=== PATIENT | female | born 2000 | race Two or more races ===

== ENCOUNTER 2024-04-13 18:00 | Emergency (ER) | payer MEDICAID, SELFPAY ==
[2024-04-13 18:01] VITALS: BMI 24.0
[2024-04-13 18:34] VITALS: BP 131/84; PULSE 81; RESP 18; TEMP 37.2; O2SAT 100
--- NOTE | 2024-04-13 18:36 | PD.EDRME ---
Rapid Medical Screening Exam RME Arrival date/time: 04/13/24 18:00 Chief Complaint: GI Bleed Time Seen by Provider: 04/13/24 18:14 Vital signs: Vital Signs Temperature 98.9 F 04/13/24 18:34 Pulse Rate 81 04/13/24 18:34 Respiratory Rate 18 04/13/24 18:34 Blood Pressure 131/84 H 04/13/24 18:34 Pulse Oximetry (%) 100 04/13/24 18:34 Oxygen Delivery Method Room Air 04/13/24 18:34 E Narrative: Single episode of bright red blood in stool today.
--- NOTE | 2024-04-13 18:37 | XR_ITS ---
Examination: Abdomen AP single view Technique: AP portable supine abdomen, single view Exam date and time: April 13, 2024 at 1841 hours INDICATIONS: Blood in the stool with constipation today FINDINGS: Nonobstructive bowel gas pattern. Moderate stool in the right colon No free air Osseous structures intact IMPRESSION: Nonobstructive bowel gas pattern
[2024-04-13 19:36] LABS: Collection Type, Urine Clean Catch
[2024-04-13 19:54] LABS: Bilirubin,Urine Negative (Negative); Blood,Urine 1+ (Negative); Clarity,Urine Turbid (Clear/Hazy); Glucose, Urine Negative (Negative); HCG Qualitative,Urine Negative; Ketones,Urine Trace (Negative); Leukocyte Esterase,Urine Positive (Negative); Nitrite,Urine Negative (Negative); Protein,Urine Trace (Neg - Trace); RBC,Urine 3 /hpf (0-3); Squamous Epithelial Cell,Urine 17 /hpf (0-5); Urobilinogen,Urine Negative mg/dL (0.0-1.0); WBC,Urine 10 /hpf (0-5)
[2024-04-13 19:55] LABS: Color,Urine Lt Orange (Lt Yel-Yel)
[2024-04-13 20:56] LABS: Alanine Aminotransferase 17 U/L (10-49); Albumin, Serum 4.9 gm/dL (3.5-5.0); Albumin/Globulin Ratio 1.6 (1.2-2.2); Alkaline Phosphatase 84 U/L (46-116); Anion Gap 8 (7-16); Aspartate Amino Transferase 18 U/L (0-34); BUN/Creatinine Ratio 12 Ratio (12-20); Bilirubin,Total 0.3 mg/dL (0.3-1.2); Blood Urea Nitrogen 11 mg/dL (9-23); Calcium 9.8 mg/dL (8.3-10.6); Calcium (Corrected) 9.8 mg/dL (8.5-10.1); Carbon Dioxide 27.4 mMol/L (20.0-31.0); Chloride 105 mMol/L (98-107); Creatinine (Component) 0.9 mg/dL (0.6-1.3); Estimated Creatinine Clearance 79.4 mL/min (>60); Glucose 92 mg/dL (74-106); Osmolality,Calculated 278 (275-295); Potassium 3.8 mMol/L (3.4-5.1); Sodium 140 mMol/L (136-145); Total Protein 7.9 gm/dL (5.7-8.2); eGFR > 60 See Note
[2024-04-13 21:00] LABS: Basophils # (Auto) 0.1 Thou/mm3 (0.0-0.2); Basophils % (Auto) 1 % (0-2.5); Eosinophils # (Auto) 0.1 Thou/mm3 (0.0-0.5); Eosinophils % (Auto) 1 % (0-10); Hematocrit 40.8 % (36.0-46.0); Immature Granulocytes % (Auto) 0 % (0-0); Immature Granulocytes Auto 0.02 Thou/mm3 (0.00-0.00); Lymphocytes # (Auto) 2.7 Thou/mm3 (1.0-4.8); Lymphocytes % (Auto) 34 % (10-50); Mean Corpuscular HGB Conc 34.3 g/dl (31.0-37.0); Mean Corpuscular Hemoglobin 30.8 pg (25.0-35.0); Mean Corpuscular Volume 90 fL (80-100); Monocytes # (Auto) 0.6 Thou/mm3 (0.0-0.8); Monocytes % (Auto) 8 % (0-12); Neutrophils # (Auto) 4.5 Thou/mm3 (1.8-7.7); Neutrophils % (Auto) 57 % (37-80); Nucleated Red Blood Cell % 0 /100 WBC (0); Platelet Count 297 Thou/mm3 (140-440); RDW Standard Deviation 38.7 fL (36.4-46.3); Red Blood Count 4.55 Miln/mm3 (4.00-5.20); White Blood Count 7.9 Thou/mm3 (3.6-11.0)
--- NOTE | 2024-04-13 22:06 | PD.EDGIBLD ---
ED GI Bleed E/HPI General Chief complaint: GI Bleed Stated complaint: BLOOD IN STOOL TODAY Time Seen by Provider: 04/13/24 18:14 Arrival date/time: 04/13/24 18:00 RME / HPI RME / HPI Narrative: 24-year-old female patient came in for evaluation regarding blood red blood in the stool earlier today. Severity mild. Patient also complaining of lower abdominal discomfort. Denies any vomiting blood. Denies any rectal pain. Denies any other complaints. No medications taken prior to arrival. Related Data Previous Rx's ?Medication ?Instructions ?Recorded hydrocodone 5 mg-acetaminophen 325 1 tab PO Q4HR PRN Pain #20 tabs 09/30/ mg tablet hydrocortisone acetate 25 mg 25 mg MS BID #24 ea 04/13/24 rectal suppository (Anucort-HC) Allergies Allergy/AdvReac Type Severity Reaction Status Date / Time No Known Allergies Allergy Verified 04/13/24 18:02 Review of Systems Review of Systems Narrative Review of Systems: Review of system reviewed and within normal limits except mentioned in HPI ED Exam Narrative Physical exam: VITAL SIGNS: Reviewed. GENERAL APPEARANCE: Alert and interactive, follows commands, no acute distress, HEAD AND FACE: Non-traumatic. ENT: PERRL, pink conjunctivitis, eyelid no trauma, Mucous membrane moist. NECK: Supple, nontender, no nuchal rigidity. CHEST: No tenderness, no crepitus, no paradoxical movement, no retractions. LUNGS: Clear, well ventilated, symmetric, no rales, no wheezing, no ronchi, no stridor, good breath sounds bilaterally. HEART: Regular rate, regular rhythm, no murmur, no gallops. ABDOMEN: Soft, positive bowel sounds, nondistended, no guarding, nontender, no rebound, no masses, RECTAL: Deferred. GENITAL: Deferred. NEUROLOGICAL: Gross motor function intact sensory function intact, Appropriate for age. MUSCULOSKELETAL: low back nontender, full range of motion. EXTREMITIES: Nontender, full range of motion. SKIN: Color pink, dry, no rash, no lacerations, no abrasions, no contusions. LYMPHATICS: Deferred. Course Quality Measures none Orders Category Date Time Status KUB [XR abdomen 1V] Stat Exams 04/13/24 18:37 Completed CBC Stat Lab 04/13/24 20:15 Completed CMP [Comprehensive Metabolic Panel] Stat Lab 04/13/24 20:15 Completed HCG Qualitative,Urine Stat Lab 04/13/24 19:29 Completed UA [Urinalysis] Stat Lab 04/13/24 19:29 Completed Vital Signs Vital signs: Vital Signs Temperature 98.9 F 04/13/24 18:34 Pulse Rate 81 04/13/24 18:34 Respiratory Rate 18 04/13/24 18:34 Blood Pressure 131/84 H 04/13/24 18:34 Pulse Oximetry (%) 100 04/13/24 18:34 Oxygen Delivery Method Room Air 04/13/24 18:34 GI Bleed MDM Narrative MDM Narrative:: 24-year-old female patient came in for evaluation regarding blood red blood in the stool earlier today. Severity mild. Patient also complaining of lower abdominal discomfort. Denies any vomiting blood. Denies any rectal pain. Denies any other complaints. No medications taken prior to arrival. Patient's workup today all came back normal and there is no sign of anemia. Urinalysis no UTI dirty collection. X-ray of the abdomen came back unremarkable. Patient was advised to follow-up with PCP and asked for referral to GI specialist, Dr. Cantrell, for outpatient colonoscopy. Patient agrees with the plan. Patient data External records reviewed:: None Clinical information provided by:: patient Social determinants that could affect healthcare access:: none Patient has the following chronic illnesses:: None How is presenting disease/condition affected by chronic disease/condition?: no chronic disease Evaluation data The following diagnostics were reviewed and interpreted by me:: lab results and radiology exam(s) Lab and/or radiology exams considered but not ordered:: None Interpretation Summary: Patient's workup today all came back normal and there is no sign of anemia. Urinalysis no UTI dirty collection. X-ray of the abdomen came back unremarkable. Medications / Prescriptions Medications or Prescriptions considered but not ordered:: None Medication administrations:: None Consultations Consultation(s) initiated? (list below): No Diagnosis GI bleed differential diagnosis: hemorrhoids and Lower gastrointestinal hemorrhage Most likely diagnosis given after review of the tests above:: Bright red blood per rectum Admission Indicated Admission indicated?: not indicated Explain why admission is indicated or not indicated:: Bright red blood per rectum Admission Request Was there a request for admission?: No Disposition Plan Disposition Plan: Discharge Discharge Attestation Discharge Attestation: The patient was given an opportunity to ask questions and understood the discharge instructions. Discharge instructions specifically effects, indications for sooner follow up or return to the emergency department, and the expected course of current diagnosis. Patient condition: Stable Discharge Plan Plan Patient Disposition: HOME (Self Care) Disposition Comment: Stable Prescriptions/Referrals Prescriptions/Med Rec: New hydrocortisone acetate [Anucort-HC] 25 mg suppository 25 mg MS BID Qty: 24 0RF No Action hydrocodone-acetaminophen 5-325 mg Tablet 1 tab PO Q4HR MDD Three PRN (Reason: Pain) Qty: 20 0RF Referrals: Tacho Rivers MD [Primary Care Provider] - In 1 week Problem List Clinical Impression: BRBPR (bright red blood per rectum) Patient/Caregiver Discharge Instructions Discharge Activity: activity as tolerated Education Materials: Understanding Rectal Bleeding Additional Instructions: Thank you for the opportunity for serving you today. You are stable for discharged . You are advised to: Follow-up with your PCP in 1 to 2 days and as per referral to GI specialist, Dr. Cantrell Increase fiber in the diet Return to ED for worsening of symptoms Increase oral fluids Take medication as prescribed Print Language: Hebrew Stand Alone Forms: Sarah Award Info., Patient Portal Info Letter PA/SURI Supervising Physician SCOTT/SURI Supervising Physician: MD Dahiana
[2024-04-13 22:10] VITALS: RESP 18
== END 2024-04-13 22:11 | disposition home or self-care (01) ==
PROVIDERS: Physician Assistant; Emergency Provider Emergency Medicine; PCP Family Medicine
DX: K62.5 Hemorrhage of anus and rectum (principal)
CPT/HCPCS: 36415; 74018; 80053; 81001; 81025; 85025; 99283

== ENCOUNTER 2024-11-23 15:31 | Emergency (ER) | payer MEDICAID, SELFPAY ==
[2024-11-23 15:31] VITALS: BMI 26.4
[2024-11-23 16:13] VITALS: BP 128/80; PULSE 81; RESP 20; TEMP 36.8; O2SAT 98
--- NOTE | 2024-11-23 16:31 | XR_ITS ---
Examination: Pelvic ultrasound, transabdominal, complete Technique: Transabdominal ultrasound of the pelvis performed using grayscale imaging Date and time of exam: November 23, 2024, 1712 hours INDICATIONS: Onset right lower abdominal pelvic pain beginning 2 days ago. FINDINGS: Uterus 7.9 cm endometrial stripe 0.8 cm No uterine mass or intrauterine gestation. Right ovary 3.7 cm arterial flow. Left ovary 4.3 cm arterial flow 15 mm follicular cyst IMPRESSION: No uterine mass or intrauterine gestation
--- NOTE | 2024-11-23 16:31 | XR_ITS ---
Examination: CT abdomen with intravenous contrast CT pelvis with intravenous contrast 2-D coronal reconstructions 2-D sagittal reconstructions Date and time of exam:November 23, 2024 2147 hours, comparison September 28, 2020 INDICATIONS: Onset flank pain today. CTDI: vol (mGy) 6.42 DLP: (mGycm) 344 Technique: Multiple axial sections of the abdomen and pelvis have been obtained. 64 slice high-resolution scanner used. 3 mm axial sections have been obtained, post intravenous injection 60 cc Isovue 370 2-D sagittal, coronal reconstructions obtained. Low dose protocols were performed. One or more of the following dose reduction techniques were used; automated exposure control, adjustment of the mA and/or KV according to patient size, use of iterative reconstruction technique. Findings: No focal liver or splenic lesions No gallstones No pancreatic or adrenal mass No renal or ureteral calculi, no hydronephrosis Aorta normal size. Absent appendix No bowel obstruction No diverticulitis Retroverted uterus. No adnexal mass Mild thickening of the urinary bladder wall Osseous structures are intact IMPRESSION: No renal or ureteral calculi, no hydronephrosis No bowel obstruction or diverticulitis Mild cystitis pattern
--- NOTE | 2024-11-23 16:32 | EDRME_ITS ---
Rapid Medical Screening Exam RME Arrival date/time: 11/23/24 15:31 Chief Complaint: Abdominal Pain Vital signs: Vital Signs Temperature 98.2 F 11/23/24 16:13 Pulse Rate 81 11/23/24 16:13 Respiratory Rate 20 11/23/24 16:13 Blood Pressure 128/80 11/23/24 16:13 Pulse Oximetry (%) 98 11/23/24 16:13 Oxygen Delivery Method Room Air 11/23/24 16:13 Vital signs reviewed by provider: Yes RME Narrative: Patient is a 35-year-old female with medical history notable for remote appendectomy that seen emerged from concerns for right lower quadrant abdominal pain. Denies fevers chills nausea vomiting chest pain epigastric pain melena bloody stools. Does endorse dysuria. Pain is in the right lower quadrant and in the pelvis, radiates to the back. Does endorse some dysuria. No abnormal vaginal discharge, no history of sexually transmitted infections. Patient is currently taking 800 mg of ibuprofen as well as baclofen for pain for a work-re lated injury. Patient does not have any allergies to medications. No drugs alcohol no smoking.
[2024-11-23 17:11] LABS: Collection Type, Urine Clean Catch
[2024-11-23 17:23] LABS: Bacteria,Urine Rare; Bilirubin,Urine Negative (Negative); Blood,Urine Trace (Negative); Color,Urine Lt-Yellow (Lt Yel-Yel); Culture Indicated,Urine Not Indicated; Glucose, Urine Negative (Negative); Ketones,Urine Negative (Negative); Leukocyte Esterase,Urine Positive (Negative); Nitrite,Urine Negative (Negative); PH,Urine 7.0 (5.0-7.0); Protein,Urine Negative (Neg - Trace); RBC,Urine 1 /hpf (0-3); Specific Gravity,Urine 1.007 (1.001-1.035); Squamous Epithelial Cell,Urine 7 /hpf (0-5); Urobilinogen,Urine Negative mg/dL (0.0-1.0); WBC,Urine 6 /hpf (0-5)
[2024-11-23] MEDS: HYDROcodone/APAP 5/325 TABLET 1 TAB PO (17:45)
[2024-11-23 17:50] LABS: Clarity,Urine Hazy (Clear/Hazy)
[2024-11-23 18:04] LABS: Basophils # (Auto) 0.1 Thou/mm3 (0.0-0.2); Basophils % (Auto) 1 % (0-2.5); Eosinophils # (Auto) 0.0 Thou/mm3 (0.0-0.5); Eosinophils % (Auto) 1 % (0-10); Hematocrit 42.0 % (36.0-46.0); Hemoglobin 14.9 g/dL (12.0-16.0); Immature Granulocytes Auto 0.02 Thou/mm3 (0.00-0.00); Lymphocytes # (Auto) 2.4 Thou/mm3 (1.0-4.8); Lymphocytes % (Auto) 29 % (10-50); Mean Corpuscular HGB Conc 35.5 g/dl (31.0-37.0); Mean Corpuscular Hemoglobin 31.4 pg (25.0-35.0); Mean Corpuscular Volume 88 fL (80-100); Monocytes # (Auto) 0.4 Thou/mm3 (0.0-0.8); Monocytes % (Auto) 4 % (0-12); Neutrophils # (Auto) 5.4 Thou/mm3 (1.8-7.7); Neutrophils % (Auto) 65 % (37-80); Nucleated Red Blood Cell # 0.00 Thou/mm3 (0.00-0.00); Nucleated Red Blood Cell % 0 /100 WBC (0); Platelet Count 291 Thou/mm3 (140-440); RDW Standard Deviation 38.2 fL (36.4-46.3); Red Blood Count 4.75 Miln/mm3 (4.00-5.20); White Blood Count 8.2 Thou/mm3 (3.6-11.0)
[2024-11-23 18:21] LABS: Alanine Aminotransferase 14 U/L (10-49); Albumin, Serum 4.8 gm/dL (3.5-5.0); Albumin/Globulin Ratio 1.7 (1.2-2.2); Alkaline Phosphatase 92 U/L (46-116); Anion Gap 12 (7-16); Aspartate Amino Transferase 20 U/L (0-34); BUN/Creatinine Ratio 10 Ratio (12-20); Bilirubin,Total 0.4 mg/dL (0.3-1.2); Blood Urea Nitrogen 7 mg/dL (9-23); Calcium 10.2 mg/dL (8.3-10.6); Calcium (Corrected) 10.2 mg/dL (8.5-10.1); Carbon Dioxide 24.4 mMol/L (20.0-31.0); Chloride 105 mMol/L (98-107); Creatinine (Component) 0.7 mg/dL (0.6-1.3); Estimated Creatinine Clearance 106.7 mL/min (>60); Globulin 2.8 gm/dL (2.3-3.5); Glucose 135 mg/dL (74-106); Lipase 38 U/L (12-53); Osmolality,Calculated 281 (275-295); Potassium 4.0 mMol/L (3.4-5.1); Sodium 141 mMol/L (136-145); Total Protein 7.6 gm/dL (5.7-8.2); eGFR > 60 See Note
[2024-11-23 18:30] LABS: HCG,Qualitative Serum Negative
[2024-11-23 20:47] VITALS: BP 114/81; PULSE 78; RESP 20; TEMP 36.8; O2SAT 97
--- NOTE | 2024-11-24 01:27 | EDNOTE_ITS ---
ED Abdominal Pain RME/HPI General Chief Complaint: Abdominal Pain Stated complaint: RIGHT FLANK PAIN FOR 3 DAYS Time seen by provider: 11/24/24 01:10 Arrival date/time: 11/23/24 15:31 RME / HPI RME / HPI narrative: Patient is a 35-year-old female with medical history notable for remote appendectomy that seen emerged from concerns for right lower quadrant abdominal pain. Denies fevers chills nausea vomiting chest pain epigastric pain melena bloody stools. Does endorse dysuria. Pain is in the right lower quadrant and in the pelvis, radiates to the back. Does endorse some dysuria. No abnormal vaginal discharge, no history of sexually transmitted infections. Patient is currently taking 800 mg of ibuprofen as well as baclofen for pain for a work- related injury. Patient does not have any allergies to medications. No drugs alcohol no smoking. Patient's right sided flank pain is made worse with movement and tactile stimulation. She has had an appendectomy in the past. No dysuria or hematuria. No history of kidney stones. Pain has been going on for several days unresponsive to ibuprofen at home. Patient has no significant past medical history. She has been taken ibuprofen and baclofen without benefit. Related Data Previous Rx's ?Medication ?Instructions ?Recorded hydrocodone 5 mg-acetaminophen 325 1 tab PO Q4HR PRN P ain #20 tabs 09/30/20 mg tablet hydrocortisone acetate 25 mg 25 mg DE BID #24 ea 04/13 rectal suppository (Anucort-HC) Allergies Allergy/AdvReac Type Severity Reaction Status Date / Time No Known Allergies Allergy Verified 11/23/24 15:33 Review of Systems Review of Systems Systems Reviewed: All systems reviewed, normal except as documented ED Exam Narrative Physical exam: Generally patient is alert no obvious distress, heart regular rate and rhythm, lungs clear to auscultation equal bilaterally, abdomen soft bowel sounds present nondistended right lateral tenderness to palpation made worse with movement. No costovertebral angle tenderness. Skin is warm pale and dry, extremities show no edema, neurologic exam showed no focal motor or sensory deficits. Nerves II through XII grossly intact Course Quality Measures none Orders Category Date Time Status CT Screening NOW Care 11/23/24 16:[address] abdomen pelvis w con Stat Exams 11/23/24 16:31 Completed US pelvic complete Stat Exams 11/23/24 Completed CBC Stat Lab 11/23/24 17:49 Completed CMP [Comprehensive Metabolic Panel] Stat Lab 11/23/24 17:49 Completed HCG,Qualitative Serum Stat Lab 11/23/24 17:49 Completed Lipase Stat Lab 11/23/24 17:49 Completed UA, C/S IF [Urinalysis, C/S if Indicated] Stat Lab 11/23/24 16:40 Completed HYDROcodone*/APAP 5/325 [[place] 5/325] Med 11/23/24 16:32 Discontinued 1 tab PO X1 ONE Vital Signs Vital signs: Vital Signs Temperature 98.2 F 11/23/24 16:13 Pulse Rate 81 11/23/24 16:13 Respiratory Rate 20 11/23/24 16:13 Blood Pressure 128/80 11/23/24 16:13 Pulse Oximetry (%) 98 11/23/24 16:13 Oxygen Delivery Method Room Air 11/23/24 16:13 Abdominal Pain MDM MDM Narrative MDM Narrative:: I interpreted all labs. There is no leukocytosis. LFTs are normal. Kidney function is normal. Urine shows no evidence of infection. CT scan done of the abdomen and pelvis without contrast is unremarkable. Pelvic ultrasound was unremarkable. Patient seems to have musculoskeletal pain. I will give the patient a dosing regimen for Tylenol and ibuprofen to be taken as prescribed. Follow-up with her doctor. Return to ER as needed or if condition worsens. Patient data External records reviewed:: [facility] previous records Clinical information provided by:: patient Social determinants that could affect healthcare access:: none Patient has the following chronic illnesses:: None How is presenting disease/condition affected by chronic disease/condition?: no chronic disease Evaluation data The following diagnostics were reviewed and interpreted by me:: lab results and radiology exam(s) Lab and/or radiology exams considered but not ordered:: None Interpretation Summary: None Medications / Prescriptions Medications or Prescriptions considered but not ordered:: None Medication administrations:: Medication Administration History Discontinued Medications Hydrocodone Bitart/Acetaminophen (Hydrocodone/[place] 5/325 Tablet) 1 tab PO X1 ONE Stop: 11/23/24 16:33 Last Admin: 11/23/24 17:45 Dose: 1 tab Documented By: As above Consultations Consultation(s) initiated? (list below): No Diagnosis Differential diagnosis abdominal pain: other Most likely diagnosis given after review of the tests above:: None Admission Indicated Admission indicated?: not indicated Admission Request Was there a request for admission?: No Disposition Plan Disposition Plan: Discharge Discharge Attestation Discharge Attestation: The patient and all family members were given an opportunity to ask questions and understood the discharge instructions. Discharge instructions specifically effects, indications for sooner follow up or return to the emergency department, and the expected course of current diagnosis. Patient condition: Stable Discharge Plan Plan Patient Disposition: HOME (Self Care) Prescriptions/Referrals Prescriptions/Med Rec: No Action hydrocodone-acetaminophen 5-325 mg Tablet 1 tab PO Q4HR MDD Three PRN (Reason: Pain) Qty: 20 0RF hydrocortisone acetate [Anucort-HC] 25 mg suppository 25 mg DE BID Qty: 24 0RF Referrals: No Primary/Family,Physician [Primary Care Provider] - In 1 week Problem List Clinical Impression: Musculoskeletal pain Patient/Caregiver Discharge Instructions Additional Instructions: Take 650 mg of Tylenol every 4 hours as needed for pain. Take 800 mg of ibuprofen every 8 hours as needed for pain. Follow-up with your doctor for further treatment and evaluation. Print Language: Croatian Stand Alone Forms: Sarah Award Info., Patient Portal Info Letter
[2024-11-24 01:34] VITALS: BP 116/72; PULSE 80; RESP 18; TEMP 36.8; O2SAT 98
== END 2024-11-24 01:36 | disposition home or self-care (01) ==
PROVIDERS: Emergency Medicine; Emergency Provider Emergency Medicine
DX: M79.18 Myalgia, other site (principal); R10.31 Right lower quadrant pain; Z90.89 Acquired absence of other organs
CPT/HCPCS: 36415; 74177; 76856; 80053; 81001; 83690; 84703; 85025; 99283; A4649; Q9967; A9270